=== PATIENT | female | born 1980 | race Caucasian/White ===

== ENCOUNTER → 2024-09-18 14:32 | Outpatient (REF) | payer BC, SELFPAY | LOC: HWRAD 14:32 | PROVIDERS: ATTENDING PHYSICIAN Nurse Practitioner Adult Health | DX: M89.8X1 Other specified disorders of bone, shoulder (principal); Q74.0 Other congenital malformations of upper limb(s), including shoulder girdle | CPT/HCPCS: 73000 ==

== ENCOUNTER → 2024-10-14 17:06 | Outpatient (REF) | payer BC, SELFPAY | LOC: RAD 17:06 | PROVIDERS: ATTENDING PHYSICIAN Nurse Practitioner Adult Health | DX: M89.8X1 Other specified disorders of bone, shoulder (principal); Q74.0 Other congenital malformations of upper limb(s), including shoulder girdle | CPT/HCPCS: 71260; Q9967 ==